=== PATIENT | male | born 1970 | race Caucasian/White ===

== ENCOUNTER 2017-02-10 09:36 | Emergency (ER) | payer OTHER, BC ==
[~2017-02-10] VITALS: Ht 185.4 cm; Wt 88.5 kg
[2017-02-10 10:14] VITALS: BP 154/114
== END 2017-02-10 10:14 | disposition home or self-care (01) ==
LOC: UTC 09:36
DX: Z02.83 Encounter for blood-alcohol and blood-drug test (principal)